=== PATIENT | female | born 1995 | race Caucasian/White ===

== ENCOUNTER 2022-05-12 12:57 | Emergency (ER) | payer OTHER ==
[~2022-05-12] VITALS: Ht 157.5 cm; Wt 105.2 kg
[2022-05-12 13:00] VITALS: BP 127/58
--- NOTE | 2022-05-12 13:12 | NUR ---
26 Y/O FEMALE C/O EPIGASTRIC PAIN XTODAY. PT HAS HX OF GALLSTONES X3 YRS AND REPORTS THE PAIN FEELS THE SAME. PT REPORTS PAIN COMES AND GOES. +NAUSEA. DENIES VOMITING. PT DENIES DYSURIA. DENIES TAKING ANYTHING FOR PAIN. ABD IS ROUND, SOFT, AND TENDER ON PALPATION. PT REPORTS 10/10 PAIN THAT SHE DESCRIBES BURNING AND NONRADIATING. PT A/O X4 WITH EVEN AND UNLABORED RESPIRATIONS. PMH:GALLSTONES NKDA
--- NOTE | 2022-05-12 13:13 | NUR ---
AMANDA MOTA AT BEDSIDE EVALUATING PT
[2022-05-12] MEDS ORDERED: DICYCLOMINE HCL LIQUID 20 MG, ALUMINUM HYD/MAG/SIMETHICONE 30 ML, LIDOCAINE VISCOUS 2% ... PO ONE ×3 (13:25)
[2022-05-12] MEDS ORDERED: KETOROLAC 30 MG/ML VIAL IVP ONE (13:25)
[2022-05-12] MEDS ORDERED: NACL 0.9% 1,000 ML IV ONE (13:25)
[2022-05-12] MEDS ORDERED: ONDANSETRON 4 MG/2 ML VIAL IVP ONE (13:25)
[2022-05-12] MEDS ORDERED: ALUMINUM HYD/MAG/SIMETHICONE 30 ML UDC ONE (13:32)
--- NOTE | 2022-05-12 13:32 | NUR ---
Ultrasound at bedside.
[2022-05-12] MEDS ORDERED: DICYCLOMINE HCL LIQUID 10 MG/5 ML UDC ONE (13:33)
[2022-05-12 13:43] LABS: BASOPHILS % (AUTO) 0.2 % (0.0-2.0); EOSINOPHILS # (AUTO) 0.6 K/uL (0-0.4); EOSINOPHILS % (AUTO) 6.8 % (0.0-4.0); HEMATOCRIT 35.8 % (36-48); LYMPHOCYTES # (AUTO) 2.2 K/uL (2.5-16.5); LYMPHOCYTES % (AUTO) 27.4 % (20.5-51.1); MEAN CORPUSCULAR HEMOGLOBIN 30 pg (27-31); MEAN CORPUSCULAR HGB CONC 33 g/dL (33-37); MEAN CORPUSCULAR VOLUME 89.5 fL (80-94); MONOCYTES # (AUTO) 0.6 K/uL (0.8-1.0); MONOCYTES % (AUTO) 6.9 % (1.7-9.3); NEUTROPHILS # (AUTO) 4.8 K/uL (1.8-7.7); NEUTROPHILS % (AUTO) 58.7 % (42.2-75.2); PLATELET COUNT (AUTO) 414 K/uL (140-450); RED BLOOD CELL COUNT(AUTO) 4.01 MIL/uL (4.20-5.40); RED CELL DISTRIBUTION WIDTH 13.5 % (11.6-13.7); WHITE BLOOD COUNT (AUTO) 8.2 K/uL (4.8-10.8)
[2022-05-12 13:51] LABS: APPEARANCE,URINE HAZY (CLEAR); BILIRUBIN,URINE NEGATIVE (NEGATIVE); BLOOD, URINE 1+ (NEGATIVE); COLOR,URINE YELLOW (YELLOW); LEUKOCYTE ESTERASE ,URINE TRACE (NEGATIVE); NITRITE, URINE NEGATIVE (NEGATIVE); UGLUCOSE NEGATIVE (NEGATIVE)
[2022-05-12 13:56] LABS: ANION GAP 9.5 (8-16); CARBON DIOXIDE 26.2 mmol/L (21-32); CREATININE 0.7 mg/dL (0.6-1.3); POTASSIUM 3.7 mmol/L (3.5-5.1); TOTAL BILIRUBIN 0.6 mg/dL (0.0-1.0)
[2022-05-12 14:14] LABS: CALCIUM OXALATE CRYSTALS,UR None Seen /HPF (None Seen); TRICHOMONAS,URINE None Seen /HPF (None Seen); WBC,URINE 0-5 /HPF (0-5); YEAST,URINE None Seen /HPF (None Seen)
[2022-05-12 14:20] LABS: COARSE GRANULAR CASTS,URINE None Seen /LPF (None Seen); FINE GRANULAR CASTS,URINE None Seen /LPF (None Seen); HYALINE CASTS, URINE None Seen /LPF (None Seen); OTHER CASTS, URINE None Seen /LPF (None Seen); OTHER CRYSTALS,URINE None Seen /HPF (None Seen); RED BLOOD CELL CASTS,URINE None Seen /LPF (None Seen); TRIPLE PHOSPHATE CRYSTAL,UR None Seen /HPF (None Seen); URIC ACID CRYSTALS,URINE None Seen /HPF (None Seen); URINE AMORPHOUS URATE 2+ /HPF (None Seen); WAXY CASTS,URINE None Seen /LPF (None Seen)
--- NOTE | 2022-05-12 14:32 | NUR ---
IV FLUIDS COMPLETE. PT DENIES ANY PAIN AT THIS TIME. WILL CONTINUE TO MONITOR
[2022-05-12] MEDS ORDERED: ONDA-188 SL (14:50)
[2022-05-12] MEDS ORDERED: CALC-870 PO (14:50)
[2022-05-12] MEDS ORDERED: IBUP-1842 PO (14:50)
--- NOTE | 2022-05-12 14:57 | NUR ---
IV removed, catheter intact and site benign. Applied folded 4x4 gauze and tape to stop bleeding.
--- NOTE | 2022-05-12 14:58 | NUR ---
Patient discharged with v/s stable. Written and verbal after care instructions ABOUT CHOLELITHIASIS given and explained. Patient alert, oriented and verbalized understanding of instructions. Ambulatory with steady gait. All questions addressed prior to discharge. ID band removed. Patient advised to follow up with PMD. Rx of ZOFRAN, MOTRIN, AND MAALOX ADVANCED TAB CHEW given. Patient educated on indication of medication including possible reaction and side effects. Opportunity to ask questions provided and answered.
== END 2022-05-12 14:58 | disposition home or self-care (01) ==
LOC: MED 12:57
DX: K80.20 Calculus of gallbladder without cholecystitis without obstruction (principal); R11.0 Nausea
CPT/HCPCS: 36415; 76705; 80053; 81001; 81025; 83690; 85025; 96361; 96374; 96375; 99284; J1885; J2405; J7030; Q0092

== ENCOUNTER 2022-09-05 20:22 | Emergency (ER) | payer OTHER ==
[~2022-09-05] VITALS: Ht 160 cm; Wt 115.2 kg
[~2022-09-05 20:22] MED LIST: CALC-870 PO; IBUP-1842 PO; ONDA-188 SL
[2022-09-05 21:18] VITALS: BP 128/67
--- NOTE | 2022-09-05 21:20 | NUR ---
PT TAKEN TO BED 6
--- NOTE | 2022-09-05 21:25 | NUR ---
Dr. Andrew examining patient.
[2022-09-05] MEDS ORDERED: DICYCLOMINE HCL LIQUID 20 MG, ALUMINUM HYD/MAG/SIMETHICONE 30 ML, LIDOCAINE VISCOUS 2% ... PO ONE ×3 (21:30)
[2022-09-05] MEDS ORDERED: DICYCLOMINE HCL LIQUID 10 MG/5 ML UDC ONE (21:31)
[2022-09-05] MEDS ORDERED: ALUMINUM HYD/MAG/SIMETHICONE 30 ML UDC ONE (21:31)
--- NOTE | 2022-09-05 21:54 | NUR ---
26YR OLD FEMALE BIB SELF C/O ABD PAIN AND BACK PAIN. PAIN IS SHARP A 10/10 PAIN LEVEL. PT STATES BEING NAUSEOUS AND VOMITING TODAY. PT IS A&OX4 RESP EVEN AND UNLABORED. HX OF GALLSTONES. HOB ELEVATED BED AT LOWEST POSITION NKDA GALLSTONES
--- NOTE | 2022-09-05 21:56 | NUR ---
PT PAIN LEVEL 0/10 AFTER GI COCKTAIL
[2022-09-05 22:42] VITALS: BP 128/67
--- NOTE | 2022-09-05 22:42 | NUR ---
Patient discharged with v/s stable. Written and verbal after care instructions given and explained. Patient verbalized understanding. Ambulatory with steady gait. All questions addressed prior to discharge. Advised to follow up with PMD.
--- NOTE | 2022-09-05 22:43 | NUR ---
The patient's care was reviewed and supervised by Dipti Dunn RN.
== END 2022-09-05 22:42 | disposition home or self-care (01) ==
LOC: MED 20:22
DX: K21.9 Gastro-esophageal reflux disease without esophagitis (principal); R10.13 Epigastric pain; Z79.899 Other long term (current) drug therapy
CPT/HCPCS: 99283

== ENCOUNTER 2023-02-18 22:38 | Emergency (ER) | payer OTHER ==
--- NOTE | 2023-02-18 23:20 | NUR ---
PATIENT CALL TO TRIAGE NO RESPONSE PATIENT LEFT WITHOUT BEING SEEN BY DR. MAGALLON. NO FURTHER CARE PROVIDED FOR PATIENT.
== END 2023-02-18 23:20 | disposition left against medical advice (07) ==
LOC: MED 22:38
DX: R10.9 Unspecified abdominal pain (principal); Z53.21 Procedure and treatment not carried out due to patient leaving prior to being seen by health care provider

== ENCOUNTER 2023-03-28 03:25 | Emergency (ER) | payer OTHER ==
[~2023-03-28] VITALS: Ht 157.5 cm; Wt 110.7 kg
[2023-03-28 03:39] VITALS: BP 111/70
[2023-03-28] MEDS ORDERED: ALUMINUM HYD/MAG/SIMETHICONE 30 ML UDC ONE (04:50)
[2023-03-28] MEDS ORDERED: DICYCLOMINE HCL LIQUID 10 MG/5 ML UDC ONE (04:50)
[2023-03-28] MEDS ORDERED: SUCR1TAB35 PO (04:57)
[2023-03-28] MEDS ORDERED: BISM262C10 PO (04:57)
[2023-03-28] MEDS ORDERED: OMEP20EC11 PO (04:57)
[2023-03-28] MEDS: DICYCLOMINE HCL LIQUID 20 MG, ALUMINUM HYD/MAG/SIMETHICONE 30 ML, LIDOCAINE VISCOUS 2% ... PO ONE ×3 (05:00)
[2023-03-28] MEDS: ACETAMINOPHEN EXTRA STRENGTH 500 MG TAB PO ONE (05:01)
[2023-03-28 05:26] VITALS: BP 111/70
--- NOTE | 2023-03-28 05:37 | NUR ---
Patient discharged with v/s stable. Written and verbal after care instructions given and explained. New rx bismatrol, bismouth, omeprazole, sucralfate. Patient verbalized understanding. Ambulatory with steady gait. All questions addressed prior to discharge. Advised to follow up with PMD.
== END 2023-03-28 05:37 | disposition home or self-care (01) ==
LOC: MED 03:25
DX: K21.9 Gastro-esophageal reflux disease without esophagitis (principal); Z79.899 Other long term (current) drug therapy
CPT/HCPCS: 93005; 99283; J7030

== ENCOUNTER 2023-05-18 05:20 | Emergency (ER) | payer OTHER ==
[~2023-05-18] VITALS: Ht 157.5 cm; Wt 111.7 kg
[~2023-05-18 05:20] MED LIST changes: +BISM262C10 PO; +OMEP20EC11 PO; +SUCR1TAB35 PO
[2023-05-18 05:30] VITALS: BP 111/79; PULSE 67; RESP 16; TEMP 98; O2SAT 97
--- NOTE | 2023-05-18 05:30 | NUR ---
TO BED AMBULATORY
[2023-05-18 06:00] LABS: APPEARANCE,URINE CLEAR (CLEAR); BILIRUBIN,URINE NEGATIVE (NEGATIVE); BLOOD, URINE TRACE-I (NEGATIVE); COLOR,URINE YELLOW (YELLOW); LEUKOCYTE ESTERASE ,URINE 2+ (NEGATIVE); NITRITE, URINE NEGATIVE (NEGATIVE); UGLUCOSE NEGATIVE (NEGATIVE)
--- NOTE | 2023-05-18 06:04 | NUR ---
ERMD at bedside evaluating patient at this time
[2023-05-18 06:08] LABS: RBC,URINE 0-5 /HPF (0-5)
[2023-05-18] MEDS ORDERED: FAMOTIDINE 20 MG TAB PO ONE (06:10)
[2023-05-18] MEDS ORDERED: ACETAMINOPHEN 325 MG TAB PO ONE (06:10)
[2023-05-18] MEDS ORDERED: ONDANSETRON 4 MG ODT PO ONE (06:15)
[2023-05-18] MEDS ORDERED: KETOROLAC 60 MG/2 ML VIAL IM ONE (06:15)
[2023-05-18 07:11] LABS: BASOPHILS # (AUTO) 0.1 K/uL (0.00-0.22); BASOPHILS % (AUTO) 0.7 % (0.0-2.0); EOSINOPHILS # (AUTO) 0.5 K/uL (0-0.4); EOSINOPHILS % (AUTO) 4.5 % (0.0-4.0); HEMATOCRIT 38.8 % (36-48); HEMOGLOBIN 12.9 g/dL (12.0-16.0); LYMPHOCYTES # (AUTO) 1.2 K/uL (2.5-16.5); LYMPHOCYTES % (AUTO) 12.1 % (20.5-51.1); MEAN CORPUSCULAR HEMOGLOBIN 30 pg (27-31); MEAN CORPUSCULAR HGB CONC 33 g/dL (33-37); MONOCYTES # (AUTO) 0.7 K/uL (0.8-1.0); MONOCYTES % (AUTO) 6.5 % (1.7-9.3); NEUTROPHILS # (AUTO) 7.6 K/uL (1.8-7.7); NEUTROPHILS % (AUTO) 76.2 % (42.2-75.2); PLATELET COUNT (AUTO) 374 K/uL (140-450); RED BLOOD CELL COUNT(AUTO) 4.31 MIL/uL (4.20-5.40)
[2023-05-18 07:21] LABS: ALBUMIN 3.9 g/dL (3.4-5.0); ANION GAP 13.9 (8-16); CARBON DIOXIDE 26.6 mmol/L (21-32); CREATININE 0.7 mg/dL (0.6-1.3); POTASSIUM 4.5 mmol/L (3.5-5.1); TOTAL BILIRUBIN 0.6 mg/dL (0.0-1.0)
[2023-05-18] MEDS ORDERED: ONDA-188 PO (07:40)
[2023-05-18] MEDS ORDERED: ACET-8905 PO (07:40)
[2023-05-18 07:48] VITALS: BP 110/78; PULSE 65; RESP 18; TEMP 98; O2SAT 97
--- NOTE | 2023-05-18 07:48 | NUR ---
Patient discharged with v/s stable. Written and verbal after care instructions given and explained. Patient alert, oriented and verbalized understanding of instructions. Ambulatory with steady gait. All questions addressed prior to discharge. ID band removed. Patient advised to follow up with PMD. Rx of hydrocodone,zofran given. Patient educated on indication of medication including possible reaction and side effects. Opportunity to ask questions provided and answered.
== END 2023-05-18 07:48 | disposition home or self-care (01) ==
LOC: MED 05:20
DX: K80.20 Calculus of gallbladder without cholecystitis without obstruction (principal); K21.9 Gastro-esophageal reflux disease without esophagitis; Z79.899 Other long term (current) drug therapy
CPT/HCPCS: 36415; 80053; 81001; 81025; 83690; 85025; 87086; 96372; 99283; J1885; Q0162

== ENCOUNTER 2023-06-07 02:10 | Emergency (ER) | payer OTHER ==
[~2023-06-07] VITALS: Ht 157.5 cm; Wt 112.5 kg
[~2023-06-07 02:10] MED LIST changes: +ACET-8905 PO; +ONDA-188 PO
[2023-06-07 02:29] VITALS: BP 125/80; PULSE 61; RESP 20; TEMP 97.6; O2SAT 98
--- NOTE | 2023-06-07 02:33 | NUR ---
PT TO THE BATHROOM FOR URINE COLLECTION
--- NOTE | 2023-06-07 04:05 | NUR ---
PT AMBULATED TO ER BED 12
[2023-06-07] MEDS ORDERED: ONDANSETRON 4 MG ODT PO ONE (04:45)
[2023-06-07] MEDS ORDERED: KETOROLAC 30 MG/ML VIAL IM ONE (04:45)
--- NOTE | 2023-06-07 05:53 | NUR ---
Pt in bed. Denies any pain or discomfort.
[2023-06-07] MEDS ORDERED: MAG-27 PO (06:07)
[2023-06-07] MEDS ORDERED: ONDA-188 PO (06:07)
[2023-06-07] MEDS ORDERED: ACET-10509 PO (06:07)
[2023-06-07 06:21] VITALS: BP 125/80; PULSE 61; RESP 20; TEMP 97.6; O2SAT 98
--- NOTE | 2023-06-07 06:22 | NUR ---
Patient discharged with v/s stable. Written and verbal after care instructions given and explained. New rx tylenol, mylanta and zofran. Patient verbalized understanding. Ambulatory with steady gait. All questions addressed prior to discharge. Advised to follow up with PMD.
== END 2023-06-07 06:22 | disposition home or self-care (01) ==
LOC: MED 02:10
DX: K80.20 Calculus of gallbladder without cholecystitis without obstruction (principal); Z79.899 Other long term (current) drug therapy
CPT/HCPCS: 81002; 81025; 96372; 99283; J1885; Q0162

== ENCOUNTER 2023-06-07 09:30 | Inpatient (IN) | payer OTHER ==
[~2023-06-07] VITALS: Ht 157.5 cm; Wt 111.6 kg
[~2023-06-07 09:30] MED LIST changes: +ACET-10509 PO; +MAG-27 PO
[2023-06-07 09:35] VITALS: BP 123/74; PULSE 63; TEMP 98.6; O2SAT 99
--- NOTE | 2023-06-07 09:40 | NUR ---
PT AMBULATED TO CHAIR B
[2023-06-07] MEDS ORDERED: ONDANSETRON 4 MG ODT PO ONE (10:45)
[2023-06-07] MEDS ORDERED: KETOROLAC 30 MG/ML VIAL IM ONE (10:45)
[2023-06-07 11:30] LABS: BASOPHILS # (AUTO) 0.1 K/uL (0.00-0.22); BASOPHILS % (AUTO) 0.8 % (0.0-2.0); EOSINOPHILS # (AUTO) 0.3 K/uL (0-0.4); EOSINOPHILS % (AUTO) 3.9 % (0.0-4.0); HEMATOCRIT 34.7 % (36-48); HEMOGLOBIN 11.6 g/dL (12.0-16.0); LYMPHOCYTES % (AUTO) 12.6 % (20.5-51.1); MEAN CORPUSCULAR HEMOGLOBIN 30 pg (27-31); MEAN CORPUSCULAR HGB CONC 34 g/dL (33-37); MEAN CORPUSCULAR VOLUME 89.5 fL (80-94); MONOCYTES # (AUTO) 0.7 K/uL (0.8-1.0); NEUTROPHILS % (AUTO) 73.7 % (42.2-75.2); PLATELET COUNT (AUTO) 330 K/uL (140-450); RED BLOOD CELL COUNT(AUTO) 3.88 MIL/uL (4.20-5.40); RED CELL DISTRIBUTION WIDTH 13.4 % (11.6-13.7); WHITE BLOOD COUNT (AUTO) 8.1 K/uL (4.8-10.8)
[2023-06-07 12:05] LABS: ALBUMIN 3.6 g/dL (3.4-5.0); ANION GAP 10.3 (8-16); CARBON DIOXIDE 28.5 mmol/L (21-32); CREATININE 0.7 mg/dL (0.6-1.3); POTASSIUM 3.8 mmol/L (3.5-5.1); TOTAL BILIRUBIN 2.4 mg/dL (0.0-1.0)
[2023-06-07] MEDS ORDERED: HYDROcodone/APAP 5/325 MG 1 TAB TAB PO PRN (14:45)
[2023-06-07] MEDS ORDERED: MORPHINE SULFATE 4 MG/ML SYR IVP PRN (14:45)
[2023-06-07] MEDS ORDERED: MAGNESIUM OXIDE 400 MG TAB PO PRN (14:45)
[2023-06-07] MEDS ORDERED: ONDANSETRON 4 MG/2 ML VIAL IVP PRN (14:45)
[2023-06-07] MEDS ORDERED: POTASSIUM CHLORIDE 10 MEQ TABER PO PRN (14:45)
[2023-06-07] MEDS ORDERED: KCL 20 MEQ IN 100 mL PREMIX 200 ML IV PRN (14:45)
[2023-06-07] MEDS ORDERED: MAG SULF 2000 MG/WATER PREMIX 50 ML IV PRN (14:45)
[2023-06-07] MEDS ORDERED: ACETAMINOPHEN 325 MG TAB PO PRN (14:45)
--- NOTE | 2023-06-07 14:45 | NUR ---
PT AMBULATED AND MOVED TO BED 11
[2023-06-07] MEDS: NACL 0.9% 1,000 ML IV SCH (15:14)
--- NOTE | 2023-06-07 15:31 | NUR ---
PATIENT HAS BEEN SCREENED AND CATEGORIZED LOW NUTRITION RISK. PATIENT WILL BE SEEN WITHIN 7 DAYS OF ADMISSION. 06/14/[address]
--- NOTE | 2023-06-07 15:45 | NUR ---
Patient will be admitted to care of MD Wilfredo. Admited to med surg. Will go to room 107B. Belongings list completed. Report to JOSE FRANCISCO Pham.
[2023-06-07] MEDS ORDERED: cefTRIAXone 1,000 MG VIAL ONE (15:52)
--- NOTE | 2023-06-07 16:10 | NUR ---
RECEIVED PATIENT FROM ED ON WHEELCHAIR. PATIENT AMBULATORY, NORMAL GAIT.
--- NOTE | 2023-06-07 18:30 | NUR ---
RADIOLOGY CALLED AND INFORMED HIDA SCAN MIGHT BE HALTED FOR TOMORROW. GIVE PATIENT 2 MILK BOXES AT 0400H FOR TOMORROW'S PROCEDURE. INFORM PM NURSE TO FOLLOW UP WITH TIME FOR HIDA SCAN PROCEDURE TOMORROW AM.
[2023-06-07 18:46] VITALS: RESP 19; O2SAT 100
--- NOTE | 2023-06-07 19:20 | NUR ---
Forest the [employer] oncall called and stated that he and Jasson phillips tech talked already. Forest also stated that the HIDA scan problem is the QC and the [employer] in the morning will look at it again and they will call [employer] rep to fix it
[2023-06-07 19:28] VITALS: RESP 19; O2SAT 100
--- NOTE | 2023-06-07 19:30 | NUR ---
ENDORSED PATIENT TO PM NURSE FOR CONTINUATION OF CARE
--- NOTE | 2023-06-07 19:31 | NUR ---
RECEIVED BEDSIDE REPORT FROM JOSLYN RN FOR CONTINUITY OF CARE. PATIENT IS AWAKE AND STABLE. A&OX4. DENIES PAIN BUT C/O FEELING NAUSEATED. ENDORSED TO JOSLYN RN FOR IV PRN PER MD ORDER. ON ROOM AIR WITH NO APPARENT S/SX OF ACUTE DISTRESS. RESPIRATIONS EVEN AND UNLABORED. IV SITE TO THE RAC 20G PATENT/INTACT WITH NS INFUSING AT 80 ML/HOUR. SKIN IS INTACT. PATIENT IS CONTINENT AND ABLE TO AMBULATE. PLAN OF CARE AND WHITE COMMUNICATION BOARD UPDATED. ALL SAFETY MEASURES IN PLACE. CALL LIGHT WITHIN REACH. ENCOURAGED TO CALL FOR ANY NEEDS/ASSISTANCE. BED IN LOW/LOCKED POSITION. SIDE RAILS X2 UP. WILL CONTINUE TO MONITOR.
--- NOTE | 2023-06-07 19:42 | NUR ---
Called [facility] Tanker Truck Driver ([phone]) spoke with Marielle (Regional Tanker Truck Driver am shift) and she stated that the night Regional Tanker Truck Driver Kacie will call back because they still give report
[2023-06-07 20:00] VITALS: BP 138/80; PULSE 88; RESP 20; TEMP 98.7; O2SAT 98
--- NOTE | 2023-06-07 20:00 | NUR ---
Patient's Plan of Care was discussed and reviewed with ANITA: BRIANNE
--- NOTE | 2023-06-07 20:24 | NUR ---
Kacie [employer] Hammer Repairer night called and she stated that for the HIDA scan, she recommended to call [facility] for portable HIDA scan tonight; for MRCP, she stated that it will be done after 11 am tomorrow because the hyperbaric tech will come at 11 am.
--- NOTE | 2023-06-07 20:41 | NUR ---
Texted Saul for HIDA scan [facility] approval; she called back to approve for calling [facility] for HIDA scan johnathan
--- NOTE | 2023-06-07 20:46 | NUR ---
Called [facility] for portable HIDA scan, spoke with She stated that she will call the tech johnathan Addendum: 06/07/23 at 2053 by Aurora Luther RN [facility] phone number [phone]
--- NOTE | 2023-06-07 21:06 | NUR ---
[facility]ax[place] the [place] [facility]
--- NOTE | 2023-06-07 21:10 | NUR ---
ADMINISTERED SCHEDULED MEDICATION PER MD ORDER. TOLERATED WELL. PROVIDED SOCKS PER PATIENT REQUEST. DENIES PAIN AT THIS TIME. RESPIRATIONS EVEN AND UNLABORED WITH NO APPARENT S/SX OF ACUTE DISTRESS. WHITE COMMUNICATION BOARD UPDATED. ALL SAFETY MEASURES IN PLACE. CALL LIGHT WITHIN REACH. ENCOURAGED TO CALL FOR ANY NEEDS/ASSISTANCE. BED IN LOW/LOCKED POSITION. SIDE RAILS X2 UP. WILL CONTINUE TO MONITOR.
--- NOTE | 2023-06-07 21:11 | NUR ---
[facility] for HIDA scan (Rigo) called ([phone]), and stated that the tech will come between 7am and 9am tomorrow morning because tonight is fully booked. He stated that pt needs to be NPO after midnight and no pain medication after midnight. Will let the MST nurse know
--- NOTE | 2023-06-07 21:22 | NUR ---
Texted Dr Lazaro regarding HIDA scan will be done tomorrow morning between 7am and 9am in [facility], cannot be done tonight because [facility] is fully booked tonight. [place] 11am tomorrow [place] [facility] [place] technician will come at 11am tomorrow morning.
--- NOTE | 2023-06-07 23:15 | NUR ---
PATIENT IS STABLE AND ASLEEP WITH NO FACIAL GRIMACING. CHEST IS RISING AND FALLING SYMMETRICALLY. RESPIRATIONS EVEN AND UNLABORED WITH NO APPARENT S/SX OF ACUTE DISTRESS. WHITE COMMUNICATION BOARD UPDATED. ALL SAFETY MEASURES IN PLACE. CALL LIGHT WITHIN REACH. BED IN LOW/LOCKED POSITION. SIDE RAILS X2 UP. WILL CONTINUE TO MONITOR.
--- NOTE | 2023-06-08 00:14 | NUR ---
[facility] [place] to confirm MRCP today 06/08/23 at 11am, told him patient will be there at 11am for MRCP per surgeon Dr Lazaro's order
--- NOTE | 2023-06-08 01:15 | NUR ---
PATIENT IS STABLE AND ASLEEP WITH NO FACIAL GRIMACING. FLACC=0. CHEST IS RISING AND FALLING SYMMETRICALLY. RESPIRATIONS EVEN AND UNLABORED WITH NO APPARENT S/SX OF ACUTE DISTRESS. WHITE COMMUNICATION BOARD UPDATED. ALL SAFETY MEASURES IN PLACE. CALL LIGHT WITHIN REACH. BED IN LOW/LOCKED POSITION. WILL CONTINUE TO MONITOR.
--- NOTE | 2023-06-08 03:15 | NUR ---
ASSISTED PATIENT TO THE BATHROOM. DENIES PAIN AT THIS TIME. RESPIRATIONS EVEN AND UNLABORED WITH NO APPARENT S/SX OF ACUTE DISTRESS. WHITE COMMUNICATION BOARD UPDATED. ALL SAFETY MEASURES IN PLACE. CALL LIGHT WITHIN REACH. ENCOURAGED TO CALL FOR ANY NEEDS/ASSISTANCE. BED IN LOW/LOCKED POSITION. SIDE RAILS X2 UP. WILL CONTINUE TO MONITOR.
[2023-06-08] MEDS: NACL 0.9% 1,000 ML IV SCH ×2 (03:33→15:17)
[2023-06-08 04:00] VITALS: BP 104/55; PULSE 63; RESP 19; TEMP 96.9; O2SAT 98
--- NOTE | 2023-06-08 05:10 | NUR ---
PROVIDED ICE CHIPS PER PATIENT REQUEST. CHANGED IV TUBING D/T CONSTANT BEEPING. TOLERATED WELL. DENIES PAIN AT THIS TIME. RESPIRATIONS EVEN AND UNLABORED WITH NO APPARENT S/SX OF ACUTE DISTRESS. ALL NEEDS MET AT THIS TIME. WHITE COMMUNICATION BOARD UPDATED. ALL SAFETY MEASURES IN PLACE. CALL LIGHT WITHIN REACH. ENCOURAGED TO CALL FOR ANY CALLS/NEEDS. BED IN LOW/LOCKED POSITION. SIDE RAILS X2 UP. WILL CONTINUE TO MONITOR.
[2023-06-08 06:02] LABS: BASOPHILS % (AUTO) 0.6 % (0.0-2.0); EOSINOPHILS # (AUTO) 0.5 K/uL (0-0.4); EOSINOPHILS % (AUTO) 7.1 % (0.0-4.0); HEMATOCRIT 34.5 % (36-48); HEMOGLOBIN 11.4 g/dL (12.0-16.0); LYMPHOCYTES # (AUTO) 1.4 K/uL (2.5-16.5); LYMPHOCYTES % (AUTO) 18.4 % (20.5-51.1); MEAN CORPUSCULAR HEMOGLOBIN 30 pg (27-31); MEAN CORPUSCULAR HGB CONC 33 g/dL (33-37); MEAN CORPUSCULAR VOLUME 91.1 fL (80-94); MONOCYTES # (AUTO) 0.7 K/uL (0.8-1.0); MONOCYTES % (AUTO) 8.8 % (1.7-9.3); NEUTROPHILS % (AUTO) 65.1 % (42.2-75.2); PLATELET COUNT (AUTO) 324 K/uL (140-450); RED BLOOD CELL COUNT(AUTO) 3.79 MIL/uL (4.20-5.40); RED CELL DISTRIBUTION WIDTH 13.7 % (11.6-13.7); WHITE BLOOD COUNT (AUTO) 7.7 K/uL (4.8-10.8)
[2023-06-08 06:29] LABS: ALBUMIN 3.3 g/dL (3.4-5.0); ANION GAP 12.4 (8-16); CARBON DIOXIDE 25.4 mmol/L (21-32); CREATININE 0.7 mg/dL (0.6-1.3); MAGNESIUM 2.2 mg/dL (1.8-2.4); PHOSPHORUS 4.1 mg/dL (2.5-4.9); POTASSIUM 3.8 mmol/L (3.5-5.1); TOTAL BILIRUBIN 0.9 mg/dL (0.0-1.0)
--- NOTE | 2023-06-08 07:10 | NUR ---
ENDORSED PATIENT TO MAT HOWARD FOR CONTINUITY OF CARE. PATIENT IS STABLE.
--- NOTE | 2023-06-08 07:11 | NUR ---
RECEIVED REPORT FROM DRIVER WHEELCHAIR NURSE, BRIANNE, FOR CONTINUITY OF CARE. PT IN BED SLEEPING AT THIS TIME. RESPIRATIONS ARE EVEN AND UNLABORED ON ROOM AIR. NO SIGNS OF DISTRESS NOTED. NO SIGNS OF PAIN OR DISCOMFORT NOTED AT THIS TIME.
[2023-06-08 08:00] VITALS: BP 100/62; PULSE 65; RESP 18; TEMP 96.8; O2SAT 98
--- NOTE | 2023-06-08 08:07 | NUR ---
ENDORSED PT TO DAY SHIFT NURSE, JOSE ROBERTO, FOR CONTINUITY OF CARE. PT IS STABLE.
--- NOTE | 2023-06-08 08:42 | NUR ---
RECEIVE CALL FROM [employer] WHO INFORM NURSE THAT STAFF IS WORKING ON SENDING PATIENT TO [place] FOR HIDA SCAN AND MRI, ADDITIONALLY; DR. CARPENTER PLAN TO HAVE PATIENT'S SURGERY IN [place]. NURSE NEED KEEPING PATIENT NPO & NO OPIOIDS AT THIS TIME Addendum: 06/08/23 at 1154 by Bri Ponce RN RECEIVE CALL FROM RADIOLOGY DEPARTMENT PERSONAL CALL THAT PATIENT WILL BE GRADE RECORDER AROUND 1530 OR 1630. INFORMATE PATIENT. WILL FOLLOW UP.
--- NOTE | 2023-06-08 08:52 | NUR ---
FNS CONSULT HAS BEEN RECEIVED FOR VOMITING X 3 DAYS ON 06/08/23. PATIENT HAS BEEN RE-SCREENED HIGH RISK AND WILL BE SEEN WITHIN 1-2 DAYS OF RECEIVING THE FNS CONSULT. [facility] [address]
--- NOTE | 2023-06-08 10:51 | NUR ---
DC PLANNING 27 YO FEMALE ADMITTED TO TELEMETRY FOR PROGRESSIVELY WORSENING ABDOMINAL PAIN.PATIENT HAS KNOWN HX OF GALLSTONES AND HAS HAD SIMILAR SYMPTOMS ON AND OFF FOR THE PAST 4 YEARS.GB US SHOWS CHOLELITHIASIS.ABDOMEN/PELVIS CT SHOWS NO EVIDENCE OF ACUTE CHOLECYSTITIS AND PATCHY OPACITIES IN THE LOWER LOBE CONCERNING FOR PNEUMONIA.MS AND NORCO FOR PAIN MEDS. ON CEFTRIAXONE. HIDA SCAN WAS REQUESTED AND SCHEDULED WITH [facility], AN OUTSIDE VENDOR BY [employer] BUT WAS CANCELLED BY OUR CERTIFIED PESTICIDE APPLICATOR,SWAPNA . HIDA SCAN AND MRCP WERE RECOMMENDED BY YESSICA TO BE DONE AT [facility] RADIOLOGY DEPARTMENT .PATIENT WILL BE TRANSFERRED TO [facility] FOR HIGH RISK CHOLECYSTECTOMY PER REQUEST OF GEN.SURGERY FOR BMI OF 45.[facility], ROLLER ENGRAVER WAS NOTIFIED .CLINICALS FAXED FOR BILLING PURPOSES.[facility] WAS ALSO NOTIFIED.CLINICALS FAXED WELL.WAITING FOR BED AVAILABILITY AND AUTHORIZATION FROM [employer] AT [facility] . CM TO FOLLOW. Addendum: 06/08/23 at 1226 by PATRICIO SWAN CM DC PLANNING AUTH # [id number] FOR [facility] PROVIDED BY [employer] AT [facility] AND GIVEN TO YOSHI RIDDLE AT [facility].TRANSPORT AUTH# [id number].BED TO BE GIVEN LATER BY YOSHI NIELSON AT [facility]. Addendum: 06/08/23 at 1629 by Nkechi Kate RN DC PLANNING: RECEIVED A CALL [facility] ROLLER ENGRAVER SPOKE WITH JANESSA PROVIDED THE ROOM NUMBER PT CAN GO 207B # TO GIVE REPORT [phone] ARRANGED TRANSPORT WITH [facility] [employer] FARMWORKER TIME 5PM NOTIFIED NAI VASQUEZ CM TO FOLLOW
--- NOTE | 2023-06-08 13:08 | NUR ---
06/08/23 RD INITIAL ASSESSMENT COMPLETED PLEASE REFER TO NUTRITION ASSESSMENT UNDER CARE ACTIVITY FOR ESTIMATED NUTRITIONAL NEEDS. 1. CONTINUE NPO DIET TOLERATED AND ONCE MEDICALLY APPROPRIATE ADVANCE TO CLEAR LIQUID DIET TOLERATED 2. RD WILL CONTINUE TO MONITOR PO STATUS, GI ISSUES, WEIGHT, AND NUTRITION RELATED LAB VALUES. 3. RD ENCOURAGES PATIENT TO FOLLOW GALLBLADDER NUTRITION EDUCATION ONCE SHE LEAVES THE HOSPITAL. 4. RD TO FOLLOW-UP 3-5 DAYS, MODERATE RISK [facility]U [address]
[2023-06-08 16:05] VITALS: BP 106/54; PULSE 63; RESP 18; TEMP 96.4
[2023-06-08 16:39] VITALS: BP 106/54; PULSE 63; RESP 18; TEMP 96.8; O2SAT 97
--- NOTE | 2023-06-08 17:45 | NUR ---
PT DC'D TO [facility], THE REPORT GIVEN TO THE TRANSPORTER WELL THE NURSE POLEN IN [facility], PT IS GOING TO ROOM 207A, ID REMOVED BUT LEFT HL IN PLACE. THE CD AND THE COPY OF THE CHART GIVEN, PT LEFT WITH OUT SOB AND DISCOMFORT THE UNIT IN [facility].[id number]
== END 2023-06-08 17:40 | disposition short-term general hospital (02) ==
LOC: MED 09:30 → MMU 14:45 → MTU 15:07
PROVIDERS: ADMIT Hospitalist; ATTEND Internal Medicine
DX: K80.62 Calculus of gallbladder and bile duct with acute cholecystitis without obstruction (principal); E66.01 Morbid (severe) obesity due to excess calories; Z68.42 Body mass index [BMI] 45.0-49.9, adult; Z79.899 Other long term (current) drug therapy
CPT/HCPCS: 36415; 76705; 80053; 83690; 83735; 84100; 85025; 86886; 86900; 86901; 87081; 96372; 99285; J0696; J1644; J1885; J2405; J7060; Q0162